=== PATIENT | male | born 1945 | race Caucasian/White ===

== ENCOUNTER 2018-03-12 07:04 | Outpatient (CLI) | payer OTHER | END 2018-03-12 07:07 | disposition home or self-care (01) | LOC: RAD 07:04 | DX: R53.82 Chronic fatigue, unspecified (principal) ==

== ENCOUNTER 2018-03-12 09:49 | Outpatient (CLI) | payer OTHER | END 2018-03-12 09:55 | disposition home or self-care (01) | LOC: LAB 09:49 | DX: D64.89 Other specified anemias (principal); D55.8 Other anemias due to enzyme disorders; L93.2 Other local lupus erythematosus; R53.82 Chronic fatigue, unspecified; E72.3 Disorders of lysine and hydroxylysine metabolism; E78.2 Mixed hyperlipidemia; E03.8 Other specified hypothyroidism; E55.9 Vitamin D deficiency, unspecified; N40.0 Benign prostatic hyperplasia without lower urinary tract symptoms; N39.8 Other specified disorders of urinary system ==

== ENCOUNTER → 2018-03-12 | Outpatient (CLI) | payer OTHER ==
[~2018-03-12] MED LIST: LEVAQUIN750 MG PO; PROTONIX40 MG PO
== END | disposition home or self-care (01) ==
LOC: NUCLEAR 07:43
DX: R53.82 Chronic fatigue, unspecified (principal); I25.10 Atherosclerotic heart disease of native coronary artery without angina pectoris; Z72.3 Lack of physical exercise

== ENCOUNTER 2018-05-20 07:41 | Outpatient (CLI) | payer OTHER | END 2018-05-20 07:47 | disposition home or self-care (01) | LOC: SONOGRAMA 07:41 → MAMO-SONO 08:45 | DX: R31.29 Other microscopic hematuria (principal) ==